=== PATIENT | male | born 1940 | race Caucasian/White ===

== ENCOUNTER 2020-09-23 17:55 | Inpatient (IN) ==
[2020-09-23] MEDS ORDERED: Acetaminophen 325 MG TABLET PO PRN (20:56)
[2020-09-23] MEDS ORDERED: Ondansetron ODT 4 MG TAB.RAPDIS SL PRN (20:56)
[2020-09-23] MEDS ORDERED: Naloxone 0.4 MG/ML INJ IVP PRN (20:56)
[2020-09-23] MEDS ORDERED: 0.9 % Sodium Chloride 1,000 ML IVC ONE (21:25)
[2020-09-23] MEDS ORDERED: 0.9 % Sodium Chloride 1,000 ML ONE (21:26)
[2020-09-23 22:09] LABS: Hematocrit 21.5 % (35.3-44.9); Hemoglobin 6.5 g/dL (11.5-15.4); INR 4.5; Immature Granulocytes % 0.9 % (0-4); Lymphocytes # 0.9 K/mcL (0.6-4.6); Lymphocytes % 16.1 %; Mean Corpuscular HGB Conc 30.2 g/dL (31.6-35.5); Mean Corpuscular Hemoglobin 39.9 pg (28.0-33.3); Mean Corpuscular Volume 131.9 fL (83.0-100.0); Mean Platelet Volume 10.5 fL (9.4-12.4); Monocytes # 0.2 K/mcL (0.0-1.3); Monocytes % 3.4 %; Neutrophils # 4.2 K/mcL (1.6-8.9); Nucleated Red Blood Cells 1.9 /100 WBC (0); Platelet Count 666 K/mcL (140-400); Prothrombin Time 50.4 Seconds (9.4-12.1); Red Blood Count 1.63 M/mcL (3.82-4.97); Red Cell Distribution Width 24.3 % (11.5-14.5); Segmented Neutrophils % 79.6 %; White Blood Count 5.3 K/mcL (4.3-11.1)
[2020-09-23 22:22] LABS: Alanine Aminotransferase 20 Units/L (7-52); Albumin 2.7 g/dL (3.5-5.7); Albumin/Globulin Ratio 0.9 (1.1-2.2); Alkaline Phosphatase 101 Units/L (34-104); Aspartate Amino Transferase 34 Units/L (13-39); BUN/Creatinine Ratio 37 (6-26); Bilirubin,Total 1.1 mg/dL (0.3-1.0); Blood Urea Nitrogen 30 mg/dL (8-23); Calcium 8.1 mg/dL (8.6-10.3); Carbon Dioxide 20 mEq/L (23-29); Chloride 111 mEq/L (98-107); Globulin 3.1 g/dL (2.4-3.5); Glucose 64 mg/dL (70-105); Osmolality,Calculated 298 (280-300); Potassium 4.5 mEq/L (3.5-5.1); Sodium 142 mEq/L (136-145); Total Protein 5.8 g/dL (6.4-8.9); eGFR For African Americans > 60 (> 60); eGFR For Non-African Americans > 60 (> 60)
[2020-09-23] MEDS ORDERED: Perflutren Lipid Microsphere 1.3 ML in 0.9 % Sodium Chloride 8.7 ML IVP PRN (22:33)
[2020-09-23 22:41] LABS: Anisocytosis 3+ (Not Present); Hypochromasia Present (Not Present); Platelet Estimate Marked Increase (Normal); Toxic Granulation Present (Not Present)
[2020-09-23] MEDS: Melatonin 3 MG TABLET PO PRN (23:43)
[2020-09-24] MEDS ORDERED: Piperacillin/Tazobactam 4.5 GM in 0.9 % Sodium Chloride Mini Bag 100 ML IVPB ONE (00:30)
[2020-09-24] MEDS ORDERED: Vancomycin 500 MG in 0.9 % Sodium Chloride 250 ML IVPB SCH (01:00)
[2020-09-24 02:22] LABS: Basophils % 0.2 %; Eosinophils % 0.2 %; Hematocrit 19.9 % (35.3-44.9); Immature Granulocytes % 1.1 % (0-4); Lymphocytes # 0.6 K/mcL (0.6-4.6); Lymphocytes % 12.6 %; Mean Corpuscular HGB Conc 30.2 g/dL (31.6-35.5); Mean Corpuscular Volume 132.7 fL (83.0-100.0); Mean Platelet Volume 10.4 fL (9.4-12.4); Monocytes # 0.2 K/mcL (0.0-1.3); Monocytes % 3.9 %; Neutrophils # 3.6 K/mcL (1.6-8.9); Nucleated Red Blood Cells 1.6 /100 WBC (0); Platelet Count 636 K/mcL (140-400); Red Cell Distribution Width 24.2 % (11.5-14.5); White Blood Count 4.4 K/mcL (4.3-11.1)
[2020-09-24 02:27] LABS: INR 4.1
[2020-09-24 02:33] LABS: Prothrombin Time 45.9 Seconds (9.4-12.1)
[2020-09-24 02:44] LABS: % Iron Saturation 49 % (15-50); Iron 68 mcg/dL (50-170); Transferrin 99 mg/dL (203-362)
[2020-09-24 03:02] LABS: Ferritin 529 ng/mL (10-120)
[2020-09-24 03:09] LABS: Folate 18.8 ng/mL (3.0-16.0)
[2020-09-24 03:12] LABS: Anisocytosis 3+ (Not Present); Hypochromasia Present (Not Present); Platelet Estimate Marked Increase (Normal)
[2020-09-24 03:22] LABS: Chol/HDL Ratio 3.6 (0-4.9); Magnesium 1.9 mg/dL (1.6-2.6); Phosphorous 2.8 mg/dL (2.7-4.5)
[2020-09-24 03:32] LABS: Thyroid Stimulating Hormone 0.564 mcIU/mL (0.340-5.600)
[2020-09-24 06:18] LABS: Adenovirus Not Detected (Not Detect); Coronavirus 229E Not Detected (Not Detect); Coronavirus HKU1 Not Detected (Not Detect); Coronavirus NL63 Not Detected (Not Detect); Coronavirus OC43 Not Detected (Not Detect); Human Metapneumovirus Not Detected (Not Detect)
[2020-09-24 06:19] LABS: Bilirubin,Urine Negative (Negative); Blood,Urine Negative (Negative); Clarity,Urine Clear (Clear); Color,Urine Light-Yellow (Yellow); Glucose,Urine (UA) Normal (Normal); Ketones,Urine 40 mg/dL (Negative); Leukocyte Esterase,Urine Negative (Negative); Nitrite,Urine Negative (Negative); PH,Urine 5.5 pH Units (5.0-8.0); Protein,Urine Trace mg/dL (Neg-Trace); Specific Gravity,Urine > 1.030 (1.010-1.025); Urobilinogen,Urine Normal (Normal)
[2020-09-24 06:19] LABS: Bordetella Pertussis Not Detected (Not Detect); Chlamydophila pneumoniae Not Detected (Not Detect); Human Rhinovirus/Enterovirus Not Detected (Not Detect); Influenza A Subtype 2009 H1 Not Detected (Not Detect); Influenza B Not Detected (Not Detect); Mycoplasma pneumoniae Not Detected (Not Detect); Parainfluenza Virus 1 Not Detected (Not Detect); Parainfluenza Virus 2 Not Detected (Not Detect); Parainfluenza Virus 3 Not Detected (Not Detect); Parainfluenza Virus 4 Not Detected (Not Detect); Respiratory Syncytial Virus Not Detected (Not Detect)
[2020-09-24] MEDS ORDERED: Haloperidol Lactate 5 MG/ML VIAL IVP ONE (09:15)
[2020-09-24 09:18] LABS: Hematocrit 23.9 % (35.3-44.9)
[2020-09-24 09:21] LABS: Hemoglobin 7.8 g/dL (11.5-15.4)
[2020-09-24] MEDS ORDERED: 0.9 % Sodium Chloride 250 ML ONE (10:21)
[2020-09-24 11:11] LABS: Fibrinogen 247 mg/dL (169-393)
[2020-09-24 11:12] LABS: D-Dimer 718 ng/mLFEU (0-500)
[2020-09-24 12:08] LABS: INR 2.8; Prothrombin Time 31.2 Seconds (9.4-12.1)
[2020-09-24] MEDS: Pantoprazole 40 MG VIAL IVP SCH (13:01)
[2020-09-24 14:01] LABS: Hematocrit 30.7 % (35.3-44.9)
[2020-09-24 14:02] LABS: Hemoglobin 9.9 g/dL (11.5-15.4)
[2020-09-24] MEDS: *HR* HYDROcodone/Acet 5/325 mg TABLET PO PRN (14:43)
[2020-09-24] MEDS: Gabapentin 100 MG CAPSULE PO SCH ×2 (14:44→20:47)
[2020-09-24] MEDS ORDERED: Hydroxyurea 500 MG CAPSULE PO SCH ×2 (14:45→18:45)
[2020-09-24] MEDS: Piperacillin/Tazobactam 3.375 GM in 0.9 % Sodium Chloride Mini Bag 100 ML IVPB SCH ×2 (15:05→23:32)
[2020-09-24] MEDS: Ipratropium/Albuterol Neb 3 ML IH SCH ×2 (16:08→22:54)
[2020-09-24] MEDS ORDERED: Haloperidol Lactate 5 MG/ML VIAL IVP PRN (19:28)
[2020-09-24] MEDS: Melatonin 3 MG TABLET PO PRN (23:35)
[2020-09-25] MEDS: Vancomycin 500 MG in 0.9 % Sodium Chloride Mini Bag 100 ML IVPB SCH (01:08)
[2020-09-25 04:00] LABS: Basophils % 0.5 %; Eosinophils % 0.8 %; Hematocrit 28.9 % (37.5-50.1); Hemoglobin 9.1 g/dL (12.9-16.9); Immature Granulocytes % 2.2 % (0-4); Lymphocytes # 0.5 K/mcL (0.6-4.6); Lymphocytes % 14.6 %; Mean Corpuscular HGB Conc 31.5 g/dL (31.6-35.5); Mean Corpuscular Hemoglobin 34.7 pg (28.0-33.3); Mean Platelet Volume 10.1 fL (9.4-12.4); Monocytes # 0.3 K/mcL (0.0-1.3); Monocytes % 7.3 %; Neutrophils # 2.8 K/mcL (1.6-8.9); Nucleated Red Blood Cells 2.2 /100 WBC (0); Platelet Count 540 K/mcL (140-400); Red Blood Count 2.62 M/mcL (4.19-5.50); Red Cell Distribution Width 28.9 % (11.5-14.5); Segmented Neutrophils % 74.6 %; White Blood Count 3.7 K/mcL (4.3-11.1)
[2020-09-25 04:01] LABS: INR 1.6; Prothrombin Time 18.8 Seconds (9.4-12.1)
[2020-09-25] MEDS: Ipratropium/Albuterol Neb 3 ML IH SCH ×4 (04:02→21:30)
[2020-09-25 04:06] LABS: Mean Corpuscular Volume 110.3 fL (83.0-100.0)
[2020-09-25 04:19] LABS: Alanine Aminotransferase 20 Units/L (7-52); Albumin 2.3 g/dL (3.5-5.7); Albumin/Globulin Ratio 0.8 (1.1-2.2); Alkaline Phosphatase 89 Units/L (34-104); Aspartate Amino Transferase 34 Units/L (13-39); BUN/Creatinine Ratio 29 (6-26); Blood Urea Nitrogen 22 mg/dL (8-23); Calcium 7.8 mg/dL (8.6-10.3); Carbon Dioxide 21 mEq/L (23-29); Chloride 115 mEq/L (98-107); Globulin 2.8 g/dL (2.4-3.5); Glucose 67 mg/dL (70-105); Osmolality,Calculated 304 (280-300); Potassium 4.1 mEq/L (3.5-5.1); Sodium 146 mEq/L (136-145); Total Protein 5.1 g/dL (6.4-8.9); eGFR For African Americans > 60 (> 60); eGFR For Non-African Americans > 60 (> 60)
[2020-09-25] MEDS: Pantoprazole 40 MG VIAL IVP SCH ×2 (05:07→17:18)
[2020-09-25 05:16] LABS: Anisocytosis 2+ (Not Present)
[2020-09-25 05:17] LABS: Large Platelets Present (Not Present); Macrocytosis Present (Not Present); Platelet Estimate Increased (Normal); Poikilocytosis 1+ (Not Present)
[2020-09-25] MEDS: Gabapentin 100 MG CAPSULE PO SCH ×3 (09:10→20:14)
[2020-09-25] MEDS: Piperacillin/Tazobactam 3.375 GM in 0.9 % Sodium Chloride Mini Bag 100 ML IVPB SCH ×3 (09:10→23:28)
[2020-09-25] MEDS ORDERED: Hydroxyurea 500 MG CAPSULE PO SCH (09:18)
[2020-09-25] MEDS: Metoprolol XL (24 HR) Succ 25 MG TAB.ER.24H PO SCH (10:16)
[2020-09-25] MEDS: Hydroxyurea 500 MG CAPSULE PO SCH ×2 (10:18→20:13)
[2020-09-25] MEDS: lisinopriL 5 MG TABLET PO SCH (13:23)
[2020-09-25] MEDS ORDERED: Metoprolol XL (24 HR) Succ 25 MG TAB.ER.24H PO ONE (14:30)
[2020-09-25] MEDS: *HR* HYDROcodone/Acet 5/325 mg TABLET PO PRN (15:36)
[2020-09-25 15:55] LABS: BUN/Creatinine Ratio 26 (6-26); Blood Urea Nitrogen 21 mg/dL (8-23); Calcium 8.1 mg/dL (8.6-10.3); Carbon Dioxide 17 mEq/L (23-29); Chloride 116 mEq/L (98-107); Glucose 94 mg/dL (70-105); Osmolality,Calculated 301 (280-300); Potassium 5.1 mEq/L (3.5-5.1); Sodium 144 mEq/L (136-145); eGFR For African Americans > 60 (> 60); eGFR For Non-African Americans > 60 (> 60)
[2020-09-25] MEDS: Leptospermum Honey Paste 44 ML TUBE TP SCH (17:19)
[2020-09-26 02:05] LABS: Basophils % 0.3 %; Eosinophils % 1.2 %; Hemoglobin 10.2 g/dL (12.9-16.9); Immature Granulocytes % 1.8 % (0-4); Lymphocytes # 0.5 K/mcL (0.6-4.6); Lymphocytes % 15.2 %; Mean Corpuscular HGB Conc 32.9 g/dL (31.6-35.5); Mean Corpuscular Hemoglobin 36.7 pg (28.0-33.3); Mean Corpuscular Volume 111.5 fL (83.0-100.0); Mean Platelet Volume 10.3 fL (9.4-12.4); Monocytes # 0.2 K/mcL (0.0-1.3); Monocytes % 6.7 %; Nucleated Red Blood Cells 0.9 /100 WBC (0); Platelet Count 561 K/mcL (140-400); Red Blood Count 2.78 M/mcL (4.19-5.50); Red Cell Distribution Width 28.7 % (11.5-14.5); Segmented Neutrophils % 74.8 %; White Blood Count 3.4 K/mcL (4.3-11.1)
[2020-09-26 02:10] LABS: Neutrophils # 2.5 K/mcL (1.6-8.9)
[2020-09-26 02:30] LABS: Anisocytosis 2+ (Not Present); Macrocytosis Present (Not Present); Poikilocytosis 1+ (Not Present)
[2020-09-26 02:31] LABS: Platelet Estimate Increased (Normal)
[2020-09-26 02:37] LABS: BUN/Creatinine Ratio 25 (6-26); Blood Urea Nitrogen 17 mg/dL (8-23); Calcium 7.8 mg/dL (8.6-10.3); Carbon Dioxide 20 mEq/L (23-29); Chloride 114 mEq/L (98-107); Glucose 82 mg/dL (70-105); Osmolality,Calculated 297 (280-300); Potassium 3.5 mEq/L (3.5-5.1); Sodium 143 mEq/L (136-145); eGFR For African Americans > 60 (> 60); eGFR For Non-African Americans > 60 (> 60)
[2020-09-26] MEDS: Vancomycin 500 MG in 0.9 % Sodium Chloride Mini Bag 100 ML IVPB SCH (02:47)
[2020-09-26] MEDS: Ipratropium/Albuterol Neb 3 ML IH SCH ×4 (03:44→22:05)
[2020-09-26] MEDS: Pantoprazole 40 MG VIAL IVP SCH ×2 (05:00→18:41)
[2020-09-26] MEDS: lisinopriL 5 MG TABLET PO SCH (08:14)
[2020-09-26] MEDS: *HR* HYDROcodone/Acet 5/325 mg TABLET PO PRN (08:15)
[2020-09-26] MEDS: Metoprolol XL (24 HR) Succ 25 MG TAB.ER.24H PO SCH (08:15)
[2020-09-26] MEDS: Gabapentin 100 MG CAPSULE PO SCH (08:16)
[2020-09-26] MEDS: Piperacillin/Tazobactam 3.375 GM in 0.9 % Sodium Chloride Mini Bag 100 ML IVPB SCH ×3 (08:16→23:42)
[2020-09-26] MEDS ORDERED: Hydroxyurea 500 MG CAPSULE PO SCH (09:00)
[2020-09-26] MEDS ORDERED: E-Z-HD (BARIUM SULF) SUSPENSION PO ONE (10:20)
[2020-09-26] MEDS ORDERED: E-Z-PAQUE (BARIUM SULF) SUSP 1 BOTTLE PO ONE (10:20)
[2020-09-26] MEDS ORDERED: *HR* Labetalol 20 MG/4 ML SYRINGE IVP PRN (12:05)
[2020-09-26] MEDS: Leptospermum Honey Paste 44 ML TUBE TP SCH (15:04)
[2020-09-27] MEDS: Vancomycin 500 MG in 0.9 % Sodium Chloride Mini Bag 100 ML IVPB SCH (02:42)
[2020-09-27] MEDS: Ipratropium/Albuterol Neb 3 ML IH SCH ×4 (04:31→21:49)
[2020-09-27 04:48] LABS: BUN/Creatinine Ratio 21 (6-26); Blood Urea Nitrogen 12 mg/dL (8-23); Calcium 7.9 mg/dL (8.6-10.3); Carbon Dioxide 16 mEq/L (23-29); Chloride 114 mEq/L (98-107); Glucose 65 mg/dL (70-105); Osmolality,Calculated 298 (280-300); Sodium 145 mEq/L (136-145); eGFR For African Americans > 60 (> 60); eGFR For Non-African Americans > 60 (> 60)
[2020-09-27] MEDS: Pantoprazole 40 MG VIAL IVP SCH ×2 (05:08→16:26)
[2020-09-27] MEDS ORDERED: *HR* Dextrose 50 % in Water (Vial) 50 ML VIAL IVP PRN (06:10)
[2020-09-27] MEDS ORDERED: Dextrose Gel 15 GM/37.5 ML TUBE PO PRN ×2 (06:10)
[2020-09-27] MEDS ORDERED: D5% in Water 1,000 ML IVC PRN (06:10)
[2020-09-27] MEDS: Piperacillin/Tazobactam 3.375 GM in 0.9 % Sodium Chloride Mini Bag 100 ML IVPB SCH ×2 (07:42→16:26)
[2020-09-27 10:52] LABS: Basophils % 0.3 %; Eosinophils % 0.3 %; Hematocrit 36.4 % (37.5-50.1); Hemoglobin 11.6 g/dL (12.9-16.9); Immature Granulocytes % 1.2 % (0-4); Lymphocytes # 0.8 K/mcL (0.6-4.6); Lymphocytes % 10.8 %; Mean Corpuscular HGB Conc 31.9 g/dL (31.6-35.5); Mean Corpuscular Hemoglobin 35.5 pg (28.0-33.3); Mean Corpuscular Volume 111.3 fL (83.0-100.0); Mean Platelet Volume 10.2 fL (9.4-12.4); Monocytes # 0.4 K/mcL (0.0-1.3); Monocytes % 5.5 %; Neutrophils # 6.1 K/mcL (1.6-8.9); Nucleated Red Blood Cells 0.7 /100 WBC (0); Platelet Count 731 K/mcL (140-400); Red Blood Count 3.27 M/mcL (4.19-5.50); Red Cell Distribution Width 27.8 % (11.5-14.5); Segmented Neutrophils % 81.9 %
[2020-09-27 11:00] LABS: White Blood Count 7.4 K/mcL (4.3-11.1)
[2020-09-27 11:15] LABS: Platelet Estimate Increased (Normal); Toxic Granulation Present (Not Present)
[2020-09-27] MEDS: Leptospermum Honey Paste 44 ML TUBE TP SCH (11:23)
[2020-09-28] MEDS: Piperacillin/Tazobactam 3.375 GM in 0.9 % Sodium Chloride Mini Bag 100 ML IVPB SCH ×2 (00:16→08:08)
[2020-09-28 02:36] LABS: Basophils % 0.1 %; Eosinophils % 0.1 %; Hemoglobin 10.5 g/dL (12.9-16.9); Lymphocytes # 0.6 K/mcL (0.6-4.6); Lymphocytes % 7.6 %; Mean Corpuscular HGB Conc 31.8 g/dL (31.6-35.5); Mean Corpuscular Hemoglobin 35.4 pg (28.0-33.3); Mean Corpuscular Volume 111.1 fL (83.0-100.0); Monocytes # 0.4 K/mcL (0.0-1.3); Monocytes % 5.1 %; Neutrophils # 6.8 K/mcL (1.6-8.9); Nucleated Red Blood Cells 1.3 /100 WBC (0); Platelet Count 706 K/mcL (140-400); Red Blood Count 2.97 M/mcL (4.19-5.50); Red Cell Distribution Width 27.9 % (11.5-14.5); Segmented Neutrophils % 86.1 %; White Blood Count 7.9 K/mcL (4.3-11.1)
[2020-09-28 02:59] LABS: BUN/Creatinine Ratio 21 (6-26); Blood Urea Nitrogen 14 mg/dL (8-23); Calcium 8.3 mg/dL (8.6-10.3); Carbon Dioxide 19 mEq/L (23-29); Chloride 111 mEq/L (98-107); Glucose 78 mg/dL (70-105); Osmolality,Calculated 303 (280-300); Potassium 3.3 mEq/L (3.5-5.1); Sodium 147 mEq/L (136-145); eGFR For African Americans > 60 (> 60); eGFR For Non-African Americans > 60 (> 60)
[2020-09-28 03:04] LABS: Anisocytosis 1+ (Not Present); Macrocytosis Present (Not Present); Platelet Estimate Increased (Normal); Toxic Granulation Present (Not Present)
[2020-09-28] MEDS: Vancomycin 500 MG in 0.9 % Sodium Chloride Mini Bag 100 ML IVPB SCH (03:08)
[2020-09-28] MEDS: Ipratropium/Albuterol Neb 3 ML IH SCH ×2 (03:18→10:44)
[2020-09-28] MEDS: Pantoprazole 40 MG VIAL IVP SCH (05:25)
[2020-09-28] MEDS: Leptospermum Honey Paste 44 ML TUBE TP SCH (09:00)
[2020-09-28 11:06] VITALS: BP 126/90
[2020-09-28] MEDS ORDERED: Ringers Solution, Lactated 500 ML IVC SCH (14:15)
[2020-09-28] MEDS ORDERED: *HR* EPINEPHrine 1 MG/10 ML SYRINGE IVP ONE ×7 (14:26→14:47)
== END 2020-09-28 14:56 | disposition expired | DRG 871 ==
LOC: 2ANU → SUATTDRO 20:18
PROVIDERS: ADMIT Family Medicine; ATTEND Internal Medicine